=== PATIENT | male | born 1955 | race Two or more races ===

== ENCOUNTER 2019-12-12 01:55 | Inpatient (IN) | payer OTHER ==
[~2019-12-12] VITALS: Ht 180.3 cm; Wt 90.5 kg
[2019-12-12] MEDS ORDERED: ASPI-515 PO (02:10)
[2019-12-12] MEDS ORDERED: METOPROLOL PEG (02:10)
[2019-12-12] MEDS ORDERED: LISI-170 PO (02:10)
[2019-12-12] MEDS ORDERED: ATORVASTATIN PO (02:10)
[2019-12-12] MEDS ORDERED: ONDANSETRON 2MG/ML, 2ML IVPush ONE (02:30)
[2019-12-12] MEDS ORDERED: SODIUM CHLORIDE FLUSH 10ML SYR IVF ONE (02:30)
[2019-12-12] MEDS ORDERED: MORPHINE SULFATE 4 MG/ML, 1ML IVPush PRN (02:30)
[2019-12-12] MEDS ORDERED: ONDANSETRON 2MG/ML, 2ML ONE ×3 (02:38→06:23)
[2019-12-12] MEDS ORDERED: MORPHINE SULFATE 4 MG/ML, 1ML ONE ×2 (02:38→05:44)
[2019-12-12] MEDS ORDERED: LABETALOL 20 MG/4 ML ONE (02:59)
[2019-12-12] MEDS ORDERED: LABETALOL 5MG/ML, 20ML IVPush ONE (03:00)
[2019-12-12 03:09] LABS: BASOPHILS % (AUTO) 0 % (0-1); EOSINOPHILS % (AUTO) 0 % (1-7); LYMPHOCYTES % (AUTO) 5 % (22-44); MEAN CORPUSCULAR HEMOGLOBIN 26.1 pg (27.5-34.5); MEAN CORPUSCULAR HGB CONC 32.7 g/dL (33.2-36.2); MEAN PLATELET VOLUME 8.3 fL (7.4-10.4); MONOCYTES % (AUTO) 3 % (2-9); NEUTROPHILS % (AUTO) 92 % (42-75); PLATELET COUNT 243 x10^3/uL (130-400); RED BLOOD COUNT 6.21 x10^6/uL (4.38-5.82); RED CELL DISTRIBUTION WIDTH 14.7 % (9.4-14.8)
[2019-12-12 03:10] LABS: MICROSCOPIC AUTO
[2019-12-12 03:16] LABS: ALANINE AMINOTRANSFERASE 59 U/L (12-78); ALBUMIN 3.9 g/dL (3.4-5.0); ANION GAP 9 mmol/L (5-15); CALCIUM 9.5 mg/dL (8.5-10.1); CHLORIDE 92 mmol/L (98-107); CREATININE 1.01 mg/dL (0.7-1.3)
[2019-12-12 03:19] LABS: ALKALINE PHOSPHATASE 86 U/L (45-117); BILIRUBIN,TOTAL 0.9 mg/dL (0.2-1.0); TOTAL PROTEIN 8.5 g/dL (6.4-8.2)
[2019-12-12 03:50] LABS: MD SCAN
[2019-12-12] MEDS ORDERED: OMNIPAQUE 350 MG/ML, 100ML BOTTLE ONE (04:05)
[2019-12-12] MEDS ORDERED: HYDROcodone/APAP 5/325 TABLET PO PRN (05:00)
[2019-12-12] MEDS ORDERED: SODIUM CHLORIDE 0.9% 1,000ML IVBOLUS ONE (05:00)
[2019-12-12] MEDS ORDERED: ACETAMINOPHEN 325 MG TABLET PO PRN ×2 (05:00→07:00)
[2019-12-12] MEDS ORDERED: METHOCARBAMOL 500 MG TABLET PO PRN (05:00)
[2019-12-12] MEDS ORDERED: ONDANSETRON 2MG/ML, 2ML IVPush PRN ×2 (05:00→07:00)
[2019-12-12] MEDS ORDERED: SODIUM CHLORIDE 0.9% 1,000 ML IV SCH (05:00)
[2019-12-12] MEDS ORDERED: TRAZODONE 50MG TABLET PO PRN (05:00)
[2019-12-12] MEDS ORDERED: morphine SULFATE 10 MG/ML, 1ML IVPush PRN (05:00)
[2019-12-12] MEDS ORDERED: ENALAPRILAT 1.25 MG/ML, 2ML IVPush PRN (05:00)
[2019-12-12] MEDS ORDERED: DOCUSATE 100 MG CAPSULE PO PRN (05:00)
[2019-12-12] MEDS ORDERED: GUAIFENESIN/DM 200-20MG, 10ML UDC PO PRN (05:00)
[2019-12-12 05:32] LABS: INTERNATIONAL NORMALIZED RATIO 1.07 (0.93-1.1); PROTHROMBIN TIME 11.3 Seconds (9.6-11.5)
[2019-12-12] MEDS ORDERED: BUPIVACAINE/PF 0.5% ONE (05:50)
[2019-12-12] MEDS ORDERED: EPINEPHRINE 1 MG/ML, 1ML ONE (05:50)
[2019-12-12] MEDS ORDERED: BACITRACIN 50,000 UNIT ONE (05:50)
[2019-12-12] MEDS ORDERED: FENTANYL PF 100 MCG/2ML ONE ×2 (06:19→07:33)
[2019-12-12] MEDS ORDERED: MIDAZOLAM 1 MG/ML, 2ML ONE (06:19)
[2019-12-12] MEDS ORDERED: ROCURONIUM 10 MG/ML,10ML ONE (06:23)
[2019-12-12] MEDS ORDERED: SUGAMMADEX 200 MG/2 ML IVPush ONE (06:23)
[2019-12-12] MEDS ORDERED: CEFAZOLIN 1,000 MG ONE (06:23)
[2019-12-12] MEDS ORDERED: PROPOFOL 10 MG/ML, 20ML ONE (06:23)
[2019-12-12] MEDS ORDERED: SUCCINYLCHOLINE 20 MG/ML, 10ML ONE (06:23)
[2019-12-12] MEDS ORDERED: OXYcodone 5 MG/5 ML ORAL.SOL UDC PO PRN (07:00)
[2019-12-12] MEDS ORDERED: PROMETHAZINE 25 MG/ML, 1ML IVPush PRN (07:00)
[2019-12-12] MEDS ORDERED: hydrALAzine 20 MG/ML, 1ML IV PRN (07:00)
[2019-12-12] MEDS ORDERED: MEPERIDINE/PF 25MG/0.5ML IVPush PRN (07:00)
[2019-12-12] MEDS ORDERED: HYDROmorphone 1 MG/ML, 1ML INJ IVPush PRN (07:00)
[2019-12-12] MEDS ORDERED: FENTANYL PF 100 MCG/2ML IV PRN (07:00)
[2019-12-12] MEDS ORDERED: DIAZEPAM 5 MG/ML, 2ML IVPush PRN (07:00)
[2019-12-12] MEDS ORDERED: LABETALOL 5MG/ML, 20ML ONE (07:33)
[2019-12-12] MEDS: LABETALOL 5MG/ML, 20ML IV PRN ×3 (07:35→08:08)
[2019-12-12 08:51] VITALS: BP 159/96
[2019-12-12] MEDS: FAMOTIDINE 20 MG/2 ML IVPush SCH ×2 (09:16→21:39)
[2019-12-12] MEDS: METOPROLOL TARTRATE 25 MG TAB PO SCH ×2 (09:17→21:00)
[2019-12-12] MEDS: ENOXAPARIN 30 MG/0.3 ML SQ SCH ×2 (09:17→21:40)
[2019-12-12] MEDS: LISINOPRIL 20 MG TABLET PO SCH ×2 (09:17→21:00)
[2019-12-12 13:51] VITALS: BP 147/82
[2019-12-12] MEDS: KETOROLAC 30 MG/1 ML IV PRN ×2 (15:21→21:32)
[2019-12-12 20:40] VITALS: BP 102/63
[2019-12-13 00:08] VITALS: BP 88/55
[2019-12-13 04:16] VITALS: BP 94/52
[2019-12-13] MEDS ORDERED: POTASSIUM CHLORIDE 20 MEQ in SODIUM CHLORIDE 0.9% 1,000 ML IV SCH (05:00)
[2019-12-13 06:11] LABS: BASOPHILS % (AUTO) 0 % (0-1); EOSINOPHILS % (AUTO) 0 % (1-7); LYMPHOCYTES % (AUTO) 23 % (22-44); MEAN CORPUSCULAR HEMOGLOBIN 26.2 pg (27.5-34.5); MEAN PLATELET VOLUME 8.4 fL (7.4-10.4); MONOCYTES % (AUTO) 12 % (2-9); NEUTROPHILS % (AUTO) 64 % (42-75); PLATELET COUNT 168 x10^3/uL (130-400); RED BLOOD COUNT 4.03 x10^6/uL (4.38-5.82); RED CELL DISTRIBUTION WIDTH 14.5 % (9.4-14.8)
[2019-12-13 06:17] LABS: ANION GAP 7 mmol/L (5-15); CALCIUM 7.6 mg/dL (8.5-10.1); CHLORIDE 105 mmol/L (98-107)
[2019-12-13 06:18] LABS: CREATININE 1.15 mg/dL (0.7-1.3)
[2019-12-13 06:37] LABS: MD NO
[2019-12-13 07:15] VITALS: BP 103/67
[2019-12-13] MEDS: METOPROLOL TARTRATE 25 MG TAB PO SCH ×2 (10:25→20:44)
[2019-12-13] MEDS: FAMOTIDINE 20 MG/2 ML IVPush SCH ×2 (10:25→20:44)
[2019-12-13] MEDS: ENOXAPARIN 30 MG/0.3 ML SQ SCH ×2 (10:25→20:45)
[2019-12-13] MEDS: LISINOPRIL 20 MG TABLET PO SCH ×2 (10:25→20:44)
[2019-12-13] MEDS: NS + 20MEQ KCL 1,000 ML IV SCH ×2 (10:41→23:55)
[2019-12-13 13:06] VITALS: BP 136/84
[2019-12-13 19:13] VITALS: BP 140/85
[2019-12-13] MEDS: ATORVASTATIN 20 MG TABLET PO SCH (20:43)
[2019-12-14 01:07] VITALS: BP 112/70
[2019-12-14 06:03] LABS: ANION GAP 7 mmol/L (5-15); BASOPHILS % (AUTO) 0 % (0-1); CALCIUM 7.7 mg/dL (8.5-10.1); CHLORIDE 110 mmol/L (98-107); CREATININE 0.87 mg/dL (0.7-1.3); EOSINOPHILS % (AUTO) 2 % (1-7); LYMPHOCYTES % (AUTO) 31 % (22-44); MEAN CORPUSCULAR HEMOGLOBIN 26.3 pg (27.5-34.5); MEAN CORPUSCULAR HGB CONC 32.5 g/dL (33.2-36.2); MONOCYTES % (AUTO) 11 % (2-9); NEUTROPHILS % (AUTO) 56 % (42-75); PLATELET COUNT 144 x10^3/uL (130-400); RED BLOOD COUNT 3.49 x10^6/uL (4.38-5.82); RED CELL DISTRIBUTION WIDTH 14.5 % (9.4-14.8)
[2019-12-14 06:12] LABS: MD NO
[2019-12-14 07:40] VITALS: BP 138/85
[2019-12-14] MEDS ORDERED: ATORVASTATIN PO SCH (09:00)
[2019-12-14] MEDS: LISINOPRIL 20 MG TABLET PO SCH ×2 (09:16→21:13)
[2019-12-14] MEDS: FAMOTIDINE 20 MG/2 ML IVPush SCH (09:17)
[2019-12-14] MEDS: METOPROLOL TARTRATE 25 MG TAB PO SCH ×2 (09:17→21:13)
[2019-12-14] MEDS: ENOXAPARIN 30 MG/0.3 ML SQ SCH ×2 (09:18→21:15)
[2019-12-14 13:07] VITALS: BP 134/76
[2019-12-14 18:58] VITALS: BP 128/83
[2019-12-14] MEDS: FAMOTIDINE 20 MG TABLET PO SCH (21:12)
[2019-12-14] MEDS: ATORVASTATIN 20 MG TABLET PO SCH (21:13)
[2019-12-15 00:21] VITALS: BP 129/77
[2019-12-15 07:45] VITALS: BP 125/82
[2019-12-15] MEDS: FAMOTIDINE 20 MG TABLET PO SCH (09:23)
[2019-12-15] MEDS: ENOXAPARIN 30 MG/0.3 ML SQ SCH (09:23)
[2019-12-15] MEDS: LISINOPRIL 20 MG TABLET PO SCH (09:24)
[2019-12-15] MEDS: METOPROLOL TARTRATE 25 MG TAB PO SCH (09:24)
[2019-12-15] MEDS ORDERED: ATOR20TA37 PO (10:50)
[2019-12-15] MEDS ORDERED: FAMO20TA7 PO (10:50)
[2019-12-15] MEDS ORDERED: ACET325T26 PO (10:50)
[2019-12-15 13:30] VITALS: BP 132/75
== END 2019-12-15 15:30 | disposition home or self-care (01) | DRG 330 ==
LOC: ED 03:12 → EDIP 04:59 → 4NE 09:01 → DCLOUNGE 12-15 15:24
PROVIDERS: ADMIT Internal Medicine; ATTEND Internal Medicine
PROC: 0DT80ZZ Resection of Small Intestine, Open Approach (ICD-10-PCS; 2019-12-12)
PROC: 0WQF0ZZ Repair Abdominal Wall, Open Approach (ICD-10-PCS; principal; 2019-12-12 07:30)
DX: K42.0 Umbilical hernia with obstruction, without gangrene (principal); E87.1 Hypo-osmolality and hyponatremia; N17.9 Acute kidney failure, unspecified; D72.829 Elevated white blood cell count, unspecified; E87.6 Hypokalemia; E87.8 Other disorders of electrolyte and fluid balance, not elsewhere classified; I10 Essential (primary) hypertension; K21.9 Gastro-esophageal reflux disease without esophagitis; R73.03 Prediabetes; K43.0 Incisional hernia with obstruction, without gangrene; R71.8 Other abnormality of red blood cells; R73.9 Hyperglycemia, unspecified; E78.5 Hyperlipidemia, unspecified; Z20.828 Contact with and (suspected) exposure to other viral communicable diseases; Z83.3 Family history of diabetes mellitus; Z86.73 Personal history of transient ischemic attack (TIA), and cerebral infarction without residual deficits; Z82.49 Family history of ischemic heart disease and other diseases of the circulatory system; Z87.891 Personal history of nicotine dependence
CPT/HCPCS: 36415; 74018; 96374; 96375; 96376; 99285; S0020; 71045; 74177; 80048; 80053; 81001; 83036; 83605; 85025; 85610; 87635; 88307; 93005; C1729; G0378; J0171; J0690; J1650; J1885; J2250; J2405; J2704; J3010; J3480; Q9967; J0330; J2270; J7030

== ENCOUNTER 2020-10-07 08:05 | Outpatient (CLI) | payer OTHER ==
[~2020-10-07 08:05] MED LIST: ACET325T26 PO; ASPI-963 PO; ATOR20TA37 PO; ATORVASTATIN PO; FAMO20TA7 PO; LISI-170 PO; METOPROLOL PEG
[2020-10-07 08:37] LABS: BASOPHILS % (AUTO) 1 % (0-1); EOSINOPHILS % (AUTO) 5 % (1-7); LYMPHOCYTES % (AUTO) 23 % (22-44); MEAN CORPUSCULAR HEMOGLOBIN 26.5 pg (27.5-34.5); MEAN CORPUSCULAR HGB CONC 32.4 g/dL (33.2-36.2); MEAN PLATELET VOLUME 7.8 fL (7.4-10.4); MONOCYTES % (AUTO) 7 % (2-9); NEUTROPHILS % (AUTO) 64 % (42-75); PLATELET COUNT 208 x10^3/uL (130-400); RED BLOOD COUNT 5.39 x10^6/uL (4.38-5.82); RED CELL DISTRIBUTION WIDTH 14.8 % (9.4-14.8)
[2020-10-07 08:42] LABS: ALANINE AMINOTRANSFERASE 41 U/L (12-78); ALBUMIN 3.5 g/dL (3.4-5.0); CHLORIDE 105 mmol/L (98-107); CHOLESTEROL, TOTAL 93 mg/dL (140-239); CREATININE 0.94 mg/dL (0.7-1.3)
[2020-10-07 08:44] LABS: ALKALINE PHOSPHATASE 74 U/L (45-117); BILIRUBIN,TOTAL 0.5 mg/dL (0.2-1.0); HDL CHOLESTEROL (DIRECT) 47 mg/dL (40-60); TOTAL PROTEIN 7.8 g/dL (6.4-8.2); TRIGLYCERIDES 46 mg/dL (50-200); VLDL CHOLESTEROL 9 mg/dL (0-25)
[2020-10-07 09:00] LABS: ANION GAP 5 mmol/L (5-15)
[2020-10-07 09:19] LABS: HDL CHOL % 51 % (26-37); LDL CHOLESTEROL,CALCULATED 37 mg/dL (54-169); LDL/HDL RATIO 0.8 (0.5-3.0)
== END 2020-10-07 23:59 | disposition home or self-care (01) ==
LOC: LAB 08:05
PROVIDERS: ATTEND Registered Nurse
DX: I10 Essential (primary) hypertension (principal); R73.03 Prediabetes; D64.9 Anemia, unspecified; E78.00 Pure hypercholesterolemia, unspecified; E78.5 Hyperlipidemia, unspecified
CPT/HCPCS: 36415; 80053; 80061; 83036; 85025